=== PATIENT | female | born 1990 | race Caucasian/White ===

== ENCOUNTER 2021-03-04 14:53 | Outpatient (REF) | payer MEDICAID, SELFPAY ==
--- NOTE | ~2021-03-04 | XR_ITS ---
EXAMINATION: XR CHEST CLINICAL INFORMATION: Nicotine dependence. Asthma. COMPARISON: Previous chest x-ray November 2007 TECHNIQUE: 2 views of the chest were obtained. FINDINGS: No significant abnormality is noted involving the heart, lungs, mediastinum, bony thorax or soft tissues. XR/XR chest 2V IMPRESSION: Unremarkable examination.
== END 2021-03-04 14:54 | disposition home or self-care (01) ==
LOC: HO.XRAY 14:53
PROVIDERS: PCP Internal Medicine; Visit Provider Emergency Medicine
DX: J45.20 Mild intermittent asthma, uncomplicated (principal); F17.200 Nicotine dependence, unspecified, uncomplicated
CPT/HCPCS: 71046

== ENCOUNTER 2024-02-09 11:26 | Outpatient (REF) | payer OTHER, SELFPAY ==
[2024-02-09 15:24] LABS: Alanine Aminotransferase 108 U/L (0-31); Albumin Level 4.4 g/dL (3.5-5.0); Alkaline Phosphatase 97 U/L (39-117); Anion Gap 14 (12-20); Aspartate Amino Transferase 46 U/L (5-31); Bilirubin Total 0.5 mg/dL (0.0-1.0); Blood Urea Nitrogen 15 mg/dL (9-16); Calcium 9.5 mg/dL (8.4-10.2); Carbon Dioxide 25 mmol/L (22-29); Chloride 105 mmol/L (96-108); Estimated Glomerular Filt Rate > 60; Glucose Random 111 mg/dL (60-115); Potassium 3.7 mmol/L (3.3-5.1); Sodium 140 mmol/L (135-145); Total Protein 7.4 g/dL (6.5-8.0)
[2024-02-09 15:30] LABS: TSH reflex Free T4 0.83 uIU/mL (0.32-4.0)
== END 2024-02-09 11:27 | disposition home or self-care (01) ==
LOC: HO.CHCLDS 11:26
PROVIDERS: Visit Provider Registered Nurse
DX: I10 Essential (primary) hypertension (principal)
CPT/HCPCS: 36415; 80053; 84443